=== PATIENT | female | born 1940 | race Caucasian/White ===

== ENCOUNTER 2016-11-13 09:48 | Emergency (ER) | payer MEDICARE ==
[~2016-11-13] VITALS: Ht 165.1 cm; Wt 71.7 kg
[~2016-11-13 09:48] MED LIST: ASPIRIN81 MG PO; CELEXA20 MG PO; COUMADIN2.5 MG PO; COUMADIN3 MG PO; ELIQUIS5 MG PO; EXELON1.5 MG PO; EXELON4.6 MG TOP; FERROUS SULFAT325 M1 PO; FLONASE16 GM NASBOTH; NORCO 325-5 MG1 TAB PO; NYSTOP15 GM TOP; PEPCID20 MG PO; PRAVACHOL20 MG PO; PROTONIX40 MG PO; REMERON15 MG PO; SINEMET 25-1001 TAB PO; SINEMET CR 50-21 TAB PO; SYNTHROID75 MCG PO; ZYRTEC10 MG PO
[2016-11-13] MEDS ORDERED: CARBIDOPA-LEVO1 EAC4 PO (10:21)
[2016-11-13] MEDS ORDERED: ATIVAN0.5 MG PO ×2 (10:22→10:23)
[2017-04-01] MEDS ORDERED: CENTURY ADULTS1 EACH PO (12:58)
[2017-04-02] MEDS ORDERED: ZOFRAN ODT4 MG PO (09:42)
== END 2016-11-13 11:45 | disposition short-term general hospital (02) ==
LOC: ER 09:48
DX: R07.9 Chest pain, unspecified (principal); R53.1 Weakness; D69.6 Thrombocytopenia, unspecified